=== PATIENT | male | born 1980 | race Caucasian/White ===

== ENCOUNTER 2016-03-24 06:48 | Observation (INO) | payer BC ==
[2016-03-24] MEDS ORDERED: Ondansetron INJ* 2 MG/ML VIAL ONE (07:11)
[2016-03-24] MEDS ORDERED: Ondansetron INJ* 2 MG/ML VIAL IV ONE ×2 (07:13→12:14)
[2016-03-24] MEDS ORDERED: NS 0.9% 1000 ML* 1,000 ML IV ONE ×3 (07:14→08:42)
[2016-03-24 07:19] LABS: Hematocrit 43 % (42-52); Mean Corpuscular Volume 88 fL (80-94); Mean Platelet Volume 8 um3 (7.4-10.4); Red Blood Count 4.91 10^6/ul (4.0-5.4); Red Cell Distribution Width 13 % (10.5-15); White Blood Count 17.2 10^3/ul (3.5-10.8)
[2016-03-24] MEDS ORDERED: HYDROmorphone INJ* 1 MG/ML CARPUJECT SYRINGE IV ONE (07:24)
[2016-03-24 07:41] LABS: Comments Flag Yes
[2016-03-24 07:47] LABS: Hemoglobin 14.5 g/dl (14.0-18.0); Mean Corpuscular Hemoglobin 30 pg (27-31)
[2016-03-24 07:48] LABS: Mean Corpuscular HGB Conc 34 g/dl (31-36)
[2016-03-24 08:16] LABS: Albumin 5.4 g/dL (3.2-5.2); Alkaline Phosphatase 44 U/L (34-104); C Reactive Protein 5.17 mg/L (< 5.00); Calcium 10.1 mg/dL (8.6-10.3); Chloride 95 mmol/L (101-111); EGFR African American 92.1 (>60); EGFR Non-African American 71.6 (>60); Globulin 2.1 g/dL (2-4); Glucose 53 mg/dL (70-100); Lipase 355 U/L (11.0-82.0); Potassium 5.8 mmol/L (3.5-5.0); Sodium 124 mmol/L (133-145); Total Protein 7.5 g/dL (6.4-8.9)
[2016-03-24] MEDS ORDERED: Dextrose 50% Syringe 50 ML* 25 GM/50 ML SYRINGE IV PUSH ONE (08:29)
--- NOTE | 2016-03-24 08:39 | RAD ---
INDICATION: ] Right upper quadrant pain COMPARISON: CT abdomen and pelvis July 30, 2014 TECHNIQUE: Longitudinal and transverse scans of the right upper quadrant were obtained. Doppler interrogation of the hepatic and portal venous system was performed. FINDINGS: Liver: There is hepatomegaly with hepatic steatosis. There are no masses . The liver measures 21.7 cm in cephalocaudal dimension. Vessels: There is normal hepatic and portal venous flow. Bile ducts: There is no evidence of intrahepatic or extrahepatic ductal dilatation. The common duct measures 0.5 cm. Gallbladder: The sonographic appearance of the gallbladder is normal. There is no evidence of cholelithiasis, thickening of the gallbladder wall, or pericholecystic fluid. Pancreas: The visualized pancreas appears normal Right kidney: The right kidney is normal in size and echogenicity. There are no masses or calculi. There is no evidence of hydronephrosis. The right kidney measures 12.1 x 5.9 x 5.1 cm. IVC and aorta: The aorta and superior vena cava appear normal. Fluid: There is no ascites. Other: None. IMPRESSION: HEPATOMEGALY WITH HEPATIC STEATOSIS. NORMAL GALLBLADDER.
[2016-03-24 09:08] LABS: Cholesterol 535 mg/dL; HDL Cholesterol 24.5 mg/dL
[2016-03-24 09:18] LABS: Urine Bilirubin Negative (Negative); Urine Glucose 2+(150 mg/dL) (Negative); Urine Nitrite Negative (Negative)
[2016-03-24 09:26] LABS: Benzodiazepine Urine Screen None Detected (None Detect)
[2016-03-24 09:56] LABS: Triglycerides 4970 mg/dL
[2016-03-24 10:06] LABS: ALT 30 U/L (7-52); AST 37 U/L (13-39)
[2016-03-24 10:18] LABS: Alcohol < 10 mg/dL (<10)
[2016-03-24] MEDS: Morphine INJ* 2 MG/ML 1 ML CARPUJECT IV PRN (10:18)
[2016-03-24] MEDS: Ondansetron INJ* 2 MG/ML VIAL IV PRN ×2 (11:03→16:23)
[2016-03-24 11:04] LABS: Anion Gap 9 mmol/L (2-11); CO2 Carbon Dioxide 20 mmol/L (22-32)
[2016-03-24] MEDS: NS 0.9% 1000 ML* 1,000 ML IV SCH ×2 (12:05→22:30)
[2016-03-24] MEDS: HYDROmorphone INJ* 1 MG/ML CARPUJECT SYRINGE IV SLOW PU PRN ×3 (12:31→20:35)
[2016-03-24 13:59] LABS: Creatine Kinase 288 U/L (10-223)
[2016-03-24 16:25] LABS: BUN/Creatinine Ratio 12.8 (8-20); Calcium 8.8 mg/dL (8.6-10.3); EGFR African American 145.7 (>60); EGFR Non-African American 113.3 (>60); Potassium 3.8 mmol/L (3.5-5.0)
[2016-03-24] MEDS: PROCHLORPERAZINE INJ 5 MG/ML 2 ML VIAL IV PRN (20:10)
[2016-03-25 08:00] LABS: Hematocrit 40 % (42-52); Hemoglobin 13.7 g/dl (14.0-18.0); Mean Corpuscular HGB Conc 34 g/dl (31-36); Mean Corpuscular Hemoglobin 31 pg (27-31); Mean Corpuscular Volume 89 fL (80-94); Mean Platelet Volume 8 um3 (7.4-10.4); Red Cell Distribution Width 13 % (10.5-15); White Blood Count 14.6 10^3/ul (3.5-10.8)
[2016-03-25] MEDS ORDERED: Atorvastatin* 40 MG TAB PO ONE (08:27)
[2016-03-25] MEDS ORDERED: Potassium Chlor TAB* 20 MEQ TAB.ER PO ONE (08:30)
[2016-03-25] MEDS: PROCHLORPERAZINE INJ 5 MG/ML 2 ML VIAL IV PRN (08:48)
[2016-03-25] MEDS: HYDROmorphone INJ* 1 MG/ML CARPUJECT SYRINGE IV SLOW PU PRN (08:49)
[2016-03-25 08:50] LABS: BUN/Creatinine Ratio 7.7 (8-20); Calcium 9.2 mg/dL (8.6-10.3); EGFR African American 121.9 (>60); EGFR Non-African American 94.8 (>60); Globulin 3.1 g/dL (2-4); Total Bilirubin 0.5 mg/dL (0.2-1.0); Total Protein 7.1 g/dL (6.4-8.9)
[2016-03-25] MEDS: Gemfibrozil TAB* 600 MG PO SCH ×2 (08:56→21:34)
[2016-03-25 09:17] LABS: Direct Bilirubin 0.1 mg/dL (0.03-0.18); Indirect Bilirubin 0.4 mg/dL (0.3-1.0)
--- NOTE | 2016-03-25 09:25 | ED ---
Alessandro Carmona Matthew, scribed for Irwin Osorio MD on 03/24/16 at 0716 . Abdominal Pain/Male - HPI Summary HPI Summary: A 35 y/o male presents to the ED with sudden, diffuse lower abdominal pain since 01:00 today. The pain is rated 10/10 in severity and described as sharp. The patient states that he has these symptoms every four months. Associated symptoms include chills, vomiting, and nausea. The patient denies fever, hematemesis, diarrhea, blood w/ stool, urinary symptoms, rhinorrhea, sore throat , chest pain, SOB, and cough. He also has pains with deep breathing. The patient has seen a GI specialist in the past and states the symptoms were due to his high cholesterol. The patient has been taking fish pills and cholesterol medication. He has a FHx of HLD. The symptoms began with pain. The patient states that he smokes marijuana ~3 times per week. - History of Current Complaint Chief Complaint: EDAbdPain Stated Complaint: ABD PAIN Time Seen by Provider: 03/24/16 07:10 Hx Obtained From: Patient Onset/Duration: Sudden Onset, Lasting Hours, Still Present Timing: Constant Severity Initially: Moderate Severity Currently: Moderate Pain Intensity: 10 Pain Scale Used: 0-10 Numeric Location: Diffuse - lower abdominal Radiates: No Character: Sharp Aggravating Factor(s): Nothing Alleviating Factor(s): Nothing Associated Signs And Symptoms: Positive: Nausea, Vomiting, Other - Chills. Negative: Fever, Cough, Chest Pain, Blood in Stool, Urinary Symptoms, Diarrhea - Allergies/Home Medications Allergies/Adverse Reactions: Allergies Allergy/AdvReac Type Severity Reaction Status Date / Time No Known Allergies Allergy Verified 03/24/16 07:05 Home Medications: Home Medications Fish Oil 1,000 mg PO DAILY 03/24/16 [History Confirmed 03/24/16] Pepcid 10 mg PO QAM 03/24/16 [History Confirmed 03/24/16] PMH/Surg Hx/FS Hx/Imm Hx Endocrine/Hematology History: Denies: Hx Diabetes Cardiovascular History: Denies: Hx Congestive Heart Failure, Hx Hypertension History: Denies: Hx Renal Disease Infectious Disease History: No Infectious Disease History: Denies: Traveled Outside the [place] in Last 30 Days - Family History Family History: FHx of HLD - Social History Alcohol Use: Occasionally Substance Use Type: Reports: Marijuana Substance Use Comment - Amount & Last Used: 2 WEEKS AGO Smoking Status (MU): Never Smoked Tobacco Review of Systems Positive: Chills. Negative: Fever Eyes: Negative ENT: Negative Negative: Sore Throat Cardiovascular: Negative Negative: Chest Pain Respiratory: Negative Negative: Shortness Of Breath, Cough Positive: Abdominal Pain - diffuse lower abdominal , Vomiting, Nausea Genitourinary: Negative Musculoskeletal: Negative Skin: Negative Neurological: Negative Psychological: Normal All Other Systems Reviewed And Are Negative: Yes Physical Exam - Summary Physical Exam Summary: GENERAL: Awake, alert, oriented, no acute distress, very pleasant HEENT: Head is normocephalic, atraumatic, anicteric sclera, pink conjunctiva, mucous membranes moist, no erythema, no discharge, no lesions, neck is supple, trachea is midline, no JVD CARDIAC: Regular rate and rhythm, S1, S2, no rub, no murmur, no gallop, 2+ radial and pedal pulses bilaterally RESPIRATORY: Clear to auscultation bilaterally with no rales, rhonchi, or wheezes, non-tender ABDOMEN: Bowel sounds positive, no bruit, soft, epigastric tenderness, negative Psoas sign, 2+ femoral pulses, no CVA tenderness EXTREMITIES: No edema, warm, dry, moving all extremities in a grossly normal manner NEUROLOGICAL: Mood is appropriate, moving all extremities in a grossly normal manner Triage Information Reviewed: Yes Vital Signs On Initial Exam: Initial Vitals Temp Pulse Resp BP Pulse Ox 97.4 F 71 18 139/90 100 03/24/16 06:57 03/24/16 06:57 03/24/16 06:57 03/24/16 06:57 03/24/16 06:57 Vital Signs Reviewed: Yes Diagnostics - Vital Signs Vital Signs Temp Pulse Resp BP Pulse Ox 03/24/16 06:57 97.4 F 71 18 139/90 100 - Laboratory Lab Results: Lab Results 03/24/16 03/24/16 03/24/16 Range/Units 07:03 07:03 07:03 WBC 17.2 H (3.5-10.8) 10^3/ul RBC 4.91 (4.0-5.4) 10^6/ul Hgb 14.5 (14.0-18.0) g/dl Hct 43 (42-52) % MCV 88 (80-94) fL MCH 30 (27-31) pg MCHC 34 (31-36) g/dl RDW 13 (10.5-15) % Plt Count 313 (150-450) 10^3/ul MPV 8 (7.4-10.4) um3 Neut % (Auto) 79.8 (38-83) % Lymph % (Auto) 14.1 L (25-47) % [place] % (Auto) 4.8 (1-9) % Eos % (Auto) 0.7 (0-6) % Baso % (Auto) 0.6 (0-2) % Absolute Neuts (auto) 13.7 H (1.5-7.7) 10^3/ul Absolute Lymphs (auto) 2.4 (1.0-4.8) 10^3/ul Absolute Monos (auto) 0.8 (0-0.8) 10^3/ul Absolute Eos (auto) 0.1 (0-0.6) 10^3/ul Absolute Basos (auto) 0.1 (0-0.2) 10^3/ul Absolute Nucleated RBC 0.02 10^3/ul Nucleated RBC % 0.1 Sodium 124 L (133-145) mmol/L Potassium 5.8 H (3.5-5.0) mmol/L Chloride 95 L (101-111) mmol/L Carbon Dioxide 20 L (22-32) mmol/L Anion Gap 9 (2-11) mmol/L BUN TNP Creatinine 1.16 (0.67-1.17) mg/dL Est GFR ( Amer) 92.1 (>60) Est GFR (Non-Af Amer) 71.6 (>60) BUN/Creatinine Ratio TNP Glucose 53 L (70-100) mg/dL Lactic Acid 1.1 (0.5-2.0) mmol/L Calcium 10.1 (8.6-10.3) mg/dL Total Bilirubin 0.80 (0.2-1.0) mg/dL AST 37 (13-39) U/L ALT 30 (7-52) U/L Alkaline Phosphatase 44 (34-104) U/L Total Creatine Kinase 288 H (10-223) U/L Troponin I 0.00 (<0.04) ng/mL C-Reactive Protein 5.17 H (< 5.00) mg/L Total Protein 7.5 (6.4-8.9) g/dL Albumin 5.4 H (3.2-5.2) g/dL Globulin 2.1 (2-4) g/dL Albumin/Globulin Ratio 2.6 (1-3) Triglycerides 4970 mg/dL Cholesterol 535 mg/dL LDL Cholesterol mg/dL HDL Cholesterol 24.5 mg/dL Lipase 355 H (11.0-82.0) U/L Acetaminophen TNP Serum Alcohol < 10 (<10) mg/dL Result Diagrams: 03/25/16 07:36 03/25/16 07:36 Lab Statement: Any lab studies that have been ordered have been reviewed, and results considered in the medical decision making process. - Ultrasound No standard instances Ultrasound Interpretation: Positive (See Comments) - IMPRESSION: HEPATOMEGALY WITH HEPATIC STEATOSIS. NORMAL GALLBLADDER. Ultrasound Interpretation Completed By: Radiologist Re-Evaluation - Re-Evaluation First Eval Re-Evaluation Time: 07:53 Change: Unchanged Comment: The patient was counseled on the differential Dx. Abdominal Pain Fem Course/Dx - Diagnoses Provider Diagnoses: Acute pancreatitis - Provider Notifications Discussed Care Of Patient With: Dr. Collier (Hospitalist) at 08:34 -- Notified of patient's history and will admit the patient. Discharge - Discharge Plan Condition: Stable Disposition: ADMITTED TO [facility] documentation as recorded by the Alessandro best Matthew accurately reflects the service I personally performed and the decisions made by me, Irwin Osorio MD.
[2016-03-25 10:08] LABS: HDL Cholesterol 32.6 mg/dL
[2016-03-25] MEDS: NS 0.9% 1000 ML* 1,000 ML IV SCH ×2 (11:31→21:38)
[2016-03-25 11:38] LABS: TSH (Thyroid Stimulating Horm) 1.14 mcIU/mL (0.34-5.60)
--- NOTE | 2016-03-25 14:53 | PN ---
Subjective Date of Service: 03/25/16 Interval History: . met with patient at bedside. exam done abd pain decreased relative to yesterday interested in clear liquid diet. also very interested to learn about his TG levels and how that can cause pancreatitis. we discussed a referral to a lipidologist after dc - further discussed type V hypercholesterolemia. denies new s/sx patient appreciative of care. . Family History: Unchanged from Admission Social History: Unchanged from Admission Past Medical History: Unchanged from Admission Objective Active Medications: . Atorvastatin Calcium (Lipitor*) 20 mg PO 1700 ZOHREH Gemfibrozil (Lopid Tab*) 600 mg PO BID [facility] Last Admin: 03/25/16 08:56 Dose: 600 mg Hydromorphone HCl (Dilaudid Iv*) 1 mg IV SLOW PU Q4H PRN PRN Reason: PAIN Last Admin: 03/25/16 08:49 Dose: 1 mg Sodium Chloride (Ns 0.9% 1000 Ml*) 1,000 mls @ 100 mls/hr IV PER RATE [facility] Last Admin: 03/25/16 11:31 Dose: 100 mls/hr Morphine Sulfate (Morphine Inj (Syringe)*) 2 mg IV Q4H PRN PRN Reason: PAIN Last Admin: 03/24/16 10:18 Dose: 2 mg Ondansetron HCl (Zofran Inj*) 4 mg IV Q4H PRN PRN Reason: NAUSEA/VOMITING Last Admin: 03/24/16 16:23 Dose: 4 mg Prochlorperazine Edisylate (Compazine Inj*) 10 mg IV Q6H PRN PRN Reason: NAUSEA Last Admin: 03/25/16 08:48 Dose: 10 mg Vital Signs 03/24/16 03/24/16 03/24/16 15:37 16:23 17:16 Temperature 98.0 F Pulse Rate 69 Respiratory 20 16 14 Rate Blood Pressure 129/71 (mmHg) O2 Sat by Pulse 97 Oximetry 03/24/16 03/24/16 03/24/16 19:24 20:00 20:35 Temperature 98.3 F Pulse Rate 90 Respiratory 16 18 18 Rate Blood Pressure 125/66 (mmHg) O2 Sat by Pulse 97 Oximetry Oxygen Devices in Use Now: None Appearance: NAD Eyes: No Scleral Icterus, PERRLA Ears/Nose/Mouth/Throat: Clear Oropharnyx Neck: NL Appearance and Movements; NL JVP Respiratory: Symmetrical Chest Expansion and Respiratory Effort, Clear to Auscultation Cardiovascular: NL Sounds; No Murmurs; No JVD Lymphatic: No Cervical Adenopathy Extremities: No Edema Skin: No Rash or Ulcers Neurological: Alert and Oriented x 3 Lines/Tubes/Other Access: Clean, Dry and Intact Peripheral IV Nutrition: Taking PO's - clears today Result Diagrams: 03/25/16 07:36 03/25/16 07:36 Assess/Plan/Problems-Billing . Assessment: 35 yo man with acute pancreatitis secondary to hypertriglyceridemia TG down to ~400 today - much improved. corresponding improvement in hyponatremia and hyperkalemia renal function at baseline Statin and gemfibrozil started. - Patient Problems (1) Hypertriglyceridemia Current Visit: Yes Status: Acute Priority: High Code(s): E78.1 - PURE HYPERGLYCERIDEMIA Comment: - TG 4970 (03/24) to <500 (03/25) (2) Acute pancreatitis Current Visit: Yes Status: Acute Priority: High Code(s): K85.90 - ACUTE PANCREATITIS WITHOUT NECROSIS OR INFECTION, UNSP Comment: - dilaudid IV prn - zofran / compazine prn - aggressive IVF
[2016-03-25] MEDS ORDERED: Atorvastatin* 20 MG TAB PO SCH (17:00)
[2016-03-25] MEDS: Morphine INJ* 2 MG/ML 1 ML CARPUJECT IV PRN (17:25)
[2016-03-25] MEDS: Ondansetron INJ* 2 MG/ML VIAL IV PRN (17:26)
--- NOTE | 2016-03-25 20:52 | HP ---
HISTORY AND PHYSICAL: DATE OF ADMISSION: 03/24/16 TIME OF MY EVALUATION: 5 p.m. PRIMARY CARE PROVIDER: Dr. Amarjit Briggs [place], [place]. CHIEF COMPLAINT: Abdominal pain/nausea/vomiting. HISTORY OF PRESENT ILLNESS: Mr. Reyez is a pleasant 35-year-old man with limited past medical history who complains of diffuse abdominal pain since the day prior to admission - 03/23/16. The patient's pain is also epigastric. He rates it 10/10 in intensity. It is sharp. He has these symptoms every 4 to 5 months for the past year associated with chills, vomiting, and nausea. There is no fever or suspicious food intake. No bloody stools. No urinary symptoms. No upper respiratory or pulmonary symptoms. No sore throat or cough. The patient describes theabdominal pain is worsened with deep breathing. He has seen a slp and had an EGD and endoscopic ultrasound of his pancreas for suspicion of pancreatitis, but these studies were normal. There were done in January 2016 at [facility] in [place], [place]. The patient's EGD did not reveal any peptic ulcer disease or esophageal disease. The patient is guaiac negative for stool in the emergency room. His lipase is elevated above 300 with several lab derangements including hyponatremia, hyperkalemia, hypochloridemia, and a metabolic acidosis with hypoglycemia. He notably has an extremely elevated triglyceride level of 4970 with a total cholesterol of 535 and an LDL component unable to be measured. His hyponatremia was deemed pseudo-hyponatremia and his pancreatitis is thought secondary to hypertriglyceridemia. The patient has never been told he has hypertriglyceridemia although he is on fish oil. He is clinically obese with a BMI of 32. He has never been on a statin, nor tried one. He denies any history of diabetes. He has never been told he is diabetic. The patient is being referred to the hospitalist service for admission and pain control and treatment of his acute pancreatitis, but also control of his cholesterol / triglyceride levels. PAST MEDICAL HISTORY: Recurrent pancreatitis over the past year, deemed idiopathic until now with EGD and EUS/pancreas ultrasound in January 2016 that was negative. OUTPATIENT MEDICATIONS: 1. Fish oil 1000 mg by mouth once daily. 2. Pepcid 10 mg by mouth every morning as needed (intermittent reflux). ALLERGIES: No known drug allergies. FAMILY HISTORY: Reviewed and noncontributory. There is no history of cholesterol abnormalities or recurrent pancreatitis. 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 The patient is a nonsmoker and has never smoked. He drinks alcohol approximately twice per year and when he does drink, he drinks between 5 and 7 beers and he has not done this recently. He does not drink regularly outside of those instances. The patient is engaged. His fiancee is present at the bedside. His mother is his surrogate decision maker - Giulia Reyez, who can be reached at [phone]. REVIEW OF SYSTEMS: A review of 14 systems was accomplished at the bedside. This was largely negative except for the pertinent positives mentioned above in the HPI and past medical history. However, I note the patient has no history of gallstones although this is worked up with right upper quadrant ultrasound during times of his right upper quadrant pain over the past few years. He did describe reflux disease. No other pertinent positives were reported. PHYSICAL EXAMINATION GENERAL APPEARANCE: A young-appearing man, appears stated age, in no apparent distress, sitting following opiate administration, but with abdominal palpation is very uncomfortable and guards his abdomen. VITAL SIGNS: On admission, temperature 98.2 degrees Fahrenheit, pulse 70s, respirations 18 and regular, oxygen saturation 100% on room air, blood pressure 139/90 on admission. HEENT: Oropharynx is clear. Mucous membranes are moist. NECK: Supple. No elevated JVD. CHEST: Clear breath sounds anteriorly and posteriorly. No increased work of breathing or accessory muscle use. HEART: Regular rate and rhythm. No murmurs, rubs, or gallops appreciated. ABDOMEN: Exquisitely tender in the upper abdomen. It is certainly epigastric tenderness consistent with pancreatitis. There is no lower abdominal pain although that is how he initially described it. SKIN: Dry and intact without rashes, lesions, or breakdown. EXTREMITIES: Without clubbing, cyanosis, or edema. Good muscle bulk throughout. NEUROLOGIC: He has got no focal weakness. He can move all extremities. He cooperates voluntarily with my exam. Mental status is intact. PSYCH: No acute anxiety or depression. He is upset only by his pain. LYMPH: No adenopathy. ADMISSION DATA: Sodium low at 124, potassium elevated at 5.8, chloride low at 95, bicarb depressed at 20, anion gap preserved at 9, creatinine 1.16, no baseline is available. Glucose low at 53. BNP is not calculated secondary to instrumentation difficulties. Hemoglobin A1c which was added on was 5.5 (not diabetic). His total CK was elevated at 288, CRP elevated at 5.17, total protein 7.5, albumin modestly low at 5.4. His cholesterol panel was grossly abnormal with triglycerides massively elevated at 4970, total cholesterol 535, LDL fraction not able to be calculated. Amylase was normal at 78, but lipase was greatly elevated at 355. His TSH was 1.14. A gallbladder ultrasound done in the emergency room showed no evidence of gallstones or other liver pathology. The patient is being referred to the hospitalist service for admission. IMPRESSION: Mr. Reyez is a 35-year-old gentleman with hypertriglyceridemia- associated acute pancreatitis with substantial elevation in his lipase. The patient has characteristic clinical pain and I feel confident given his history of little to no alcohol annually and the absence of gallstones on several occasions during the last year and the fact that he has never been told about his hypertriglyceridemia that his acute pancreatitis is indeed secondary to it. The patient will be aggressively hydrated. His hyponatremia will not be treated directly, but insofar the triglyceride levels are brought down. The patient will be started on a statin and gemfibrozil. Gemfibrozil will be dosed at 600 mg by mouth twice daily and Lipitor will be started at 40. I am aware of the potential interaction with respect to statins and gemfibrozil, but I think in this case the patient will be aggressively hydrated and Lipitor is not the most likely statin to interact with gemfibrozil. I expect the patient will do well during the hospitalization and slowly regain the ability to eat. His diet will be advanced slowly, but he will be kept n.p.o. initially with liquid diet to be started by tomorrow. The patient should be referred to a lipidologist at some point to ensure he is accurately diagnosed and any underlying disorders (i.e. type 5 hypercholesterolemia / hypertriglyceridemia) including possibly hyperchylomicronemia, is identified and managed. Further decisions will be based on his clinical progress. The patient is a full code. DVT prophylaxis will be accomplished by early ambulation and sequential compression devices. He will also receive subcu heparin 5000 units 3 times daily. TIME SPENT: Total time taken to admit Mr. Reyez was 75 minutes, greater than half the time spent going over the history and physical examination and explaining the concept of hypercholesterolemia and my treatment plans face-to- face with the patient and his fiancee. CC: Nasim GavinW[place], [place] * [id number]/[facility] #: [id number] MTDD
[2016-03-26] MEDS: HYDROmorphone INJ* 1 MG/ML CARPUJECT SYRINGE IV SLOW PU PRN (00:37)
[2016-03-26] MEDS: Ondansetron INJ* 2 MG/ML VIAL IV PRN (00:39)
--- NOTE | 2016-03-26 01:25 | DS ---
DISCHARGE SUMMARY: DATE OF ADMISSION: 03/23/16 DATE OF DISCHARGE: 03/26/16 STATUS: Inpatient. PRIMARY CARE PROVIDER: Jayla Gavin [place]. PRINCIPAL DISCHARGE DIAGNOSIS: Acute pancreatitis secondary to hypertriglyceridemia/hypercholesterolemia. SECONDARY DIAGNOSES: 1. Obesity. 2. Gastroesophageal reflux disease. 3. Dyslipidemia. DISCHARGE MEDICATION REGIMEN: New: 1. Gemfibrozil 600 mg by mouth twice daily. 2. Lipitor 20 mg by mouth in the evening. Continue: 1. Pepcid 10 mg by mouth in the morning. 2. Also continue fish oil 1000 mg by mouth daily. HISTORY OF PRESENT ILLNESS AND HOSPITAL COURSE: Please see the H and P by me on 03/23/16. In brief, Mr. Reyez is a 35-year-old gentleman who has been having recurrent pancreatitis over the past year, idiopathic until now when he presented with a triglyceride level of 4900. The patient's lipase was elevated in the 300s. He had pain characteristic of pancreatitis. He had a right upper quadrant ultrasound, which did not show any gallstones and there is no history consistent with alcohol related pancreatitis. The patient was aggressively hydrated and treated with antiemetics and anti-analgesics and he recovered nicely. He was started on a liquid diet and did well. His diet progressed. His triglycerides fell rapidly into the 500 range. He was started on gemfibrozil and also a statin. He should have typical followup labs including LFTs and cholesterol levels in 4 to 6 weeks. The patient was very appreciative of the diagnosis. It seems he has been undergoing an outpatient workup for idiopathic pancreatitis and is happy to have a working diagnosis of hypertriglyceridemia related acute pancreatitis. The patient should be counseled on lifestyle improvement, weight loss. His glucose levels were normal during the hospitalization and his hemoglobin A1C was 5.5. He is being discharged on 03/26/16 in stable condition with a followup with his primary care physician in the upcoming days. CC: Jayla Gavin [place] * [id number]/[facility] #: [id number] MTDD
[2016-03-26 06:07] LABS: BUN/Creatinine Ratio 10.3 (8-20); Calcium 9.5 mg/dL (8.6-10.3); EGFR African American 113.3 (>60); EGFR Non-African American 88.1 (>60); Potassium 4.2 mmol/L (3.5-5.0)
[2016-03-26] MEDS: Gemfibrozil TAB* 600 MG PO SCH (08:54)
--- NOTE | 2016-03-26 09:19 | DCNOTE ---
Subjective Date of Service: 03/26/16 Interval History: No abdominal or other pain. Ate breakfast well. No new c/o, anxious to go home. Patient not aware of any factor (dietary indiscretion, med compliance, alcohol use, new meds, etc.) that could have caused this episode. Family History: Unchanged from Admission Social History: Unchanged from Admission Past Medical History: Unchanged from Admission Objective Active Medications: Atorvastatin Calcium (Lipitor*) 20 mg PO 1700 [facility] Last Admin: 03/25/16 17:17 Dose: 20 mg Gemfibrozil (Lopid Tab*) 600 mg PO BID [facility] Last Admin: 03/26/16 08:54 Dose: 600 mg Hydromorphone HCl (Dilaudid Iv*) 1 mg IV SLOW PU Q4H PRN PRN Reason: PAIN Last Admin: 03/26/16 00:37 Dose: 1 mg Sodium Chloride (Ns 0.9% 1000 Ml*) 1,000 mls @ 100 mls/hr IV PER RATE [facility] Last Admin: 03/25/16 21:38 Dose: 100 mls/hr Morphine Sulfate (Morphine Inj (Syringe)*) 2 mg IV Q4H PRN PRN Reason: PAIN Last Admin: 03/25/16 17:25 Dose: 2 mg Ondansetron HCl (Zofran Inj*) 4 mg IV Q4H PRN PRN Reason: NAUSEA/VOMITING Last Admin: 03/26/16 00:39 Dose: 4 mg Prochlorperazine Edisylate (Compazine Inj*) 10 mg IV Q6H PRN PRN Reason: NAUSEA Last Admin: 03/25/16 08:48 Dose: 10 mg Vital Signs 03/25/16 03/25/16 03/25/16 09:49 12:33 16:07 Temperature 98.1 F 98.3 F Pulse Rate 73 77 Respiratory 12 16 Rate Blood Pressure 117/74 119/68 (mmHg) O2 Sat by Pulse 95 95 Oximetry 03/25/16 03/25/16 03/25/16 17:25 18:25 20:00 Temperature Pulse Rate Respiratory 14 18 18 Rate Blood Pressure (mmHg) O2 Sat by Pulse Oximetry 03/25/16 03/26/16 03/26/16 23:54 00:37 01:37 Temperature 98 F Pulse Rate 76 Respiratory 16 18 18 Rate Blood Pressure 130/71 (mmHg) O2 Sat by Pulse 95 Oximetry Oxygen Devices in Use Now: None Appearance: Alert, sitting up in bed. In good spirits. Looks comfortable. Eyes: No Scleral Icterus Ears/Nose/Mouth/Throat: Clear Oropharnyx, Mucous Membranes Moist Abdominal: NL Sounds; No Tenderness; No Distention, No Hepatosplenomegaly, - Extremities: No Edema, No Clubbing, Cyanosis, - Skin: No Rash or Ulcers, No Nodules or Sclerosis, - Neurological: Alert and Oriented x 3, NL Sensation Result Diagrams: 03/25/16 07:36 03/26/16 05:30 Additional Lab and Data: Lab Results 03/24/16 03/24/16 03/24/16 Range/Units 07:03 07:03 07:03 WBC 17.2 H (3.5-10.8) 10^3/ul RBC 4.91 (4.0-5.4) 10^6/ul Hgb 14.5 (14.0-18.0) g/dl Hct 43 (42-52) % MCV 88 (80-94) fL MCH 30 (27-31) pg MCHC 34 (31-36) g/dl RDW 13 (10.5-15) % Plt Count 313 (150-450) 10^3/ul MPV 8 (7.4-10.4) um3 Neut % (Auto) 79.8 (38-83) % Lymph % (Auto) 14.1 L (25-47) % [place] % (Auto) 4.8 (1-9) % Eos % (Auto) 0.7 (0-6) % Baso % (Auto) 0.6 (0-2) % Absolute Neuts (auto) 13.7 H (1.5-7.7) 10^3/ul Absolute Lymphs (auto) 2.4 (1.0-4.8) 10^3/ul Absolute Monos (auto) 0.8 (0-0.8) 10^3/ul Absolute Eos (auto) 0.1 (0-0.6) 10^3/ul Absolute Basos (auto) 0.1 (0-0.2) 10^3/ul Absolute Nucleated RBC 0.02 10^3/ul Nucleated RBC % 0.1 Sodium 124 L (133-145) mmol/L Potassium 5.8 H (3.5-5.0) mmol/L Chloride 95 L (101-111) mmol/L Carbon Dioxide 20 L (22-32) mmol/L Anion Gap 9 (2-11) mmol/L BUN TNP Creatinine 1.16 (0.67-1.17) mg/dL Est GFR ( Amer) 92.1 (>60) Est GFR (Non-Af Amer) 71.6 (>60) BUN/Creatinine Ratio TNP Glucose 53 L (70-100) mg/dL Lactic Acid 1.1 (0.5-2.0) mmol/L Calcium 10.1 (8.6-10.3) mg/dL Total Bilirubin 0.80 (0.2-1.0) mg/dL AST 37 (13-39) U/L ALT 30 (7-52) U/L Alkaline Phosphatase 44 (34-104) U/L Total Creatine Kinase 288 H (10-223) U/L Troponin I 0.00 (<0.04) ng/mL C-Reactive Protein 5.17 H (< 5.00) mg/L Total Protein 7.5 (6.4-8.9) g/dL Albumin 5.4 H (3.2-5.2) g/dL Globulin 2.1 (2-4) g/dL Albumin/Globulin Ratio 2.6 (1-3) Triglycerides 4970 mg/dL Cholesterol 535 mg/dL LDL Cholesterol mg/dL HDL Cholesterol 24.5 mg/dL Lipase 355 H (11.0-82.0) U/L Acetaminophen TNP Serum Alcohol < 10 (<10) mg/dL Assess/Plan/Problems-Billing . Assessment: 35 yo man with acute pancreatitis secondary to hypertriglyceridemia TG down to ~400 today - much improved. corresponding improvement in hyponatremia and hyperkalemia renal function at baseline Statin and gemfibrozil started. - Patient Problems (1) Acute pancreatitis Current Visit: Yes Status: Acute Priority: High Code(s): K85.90 - ACUTE PANCREATITIS WITHOUT NECROSIS OR INFECTION, UNSP SNOMED Code(s): 446715839 Comment: Resolved. Lipase 117 03/26/16. No pain. discharge now. No anlagesic needed. (2) Hypertriglyceridemia Current Visit: Yes Status: Acute Priority: High Code(s): E78.1 - PURE HYPERGLYCERIDEMIA SNOMED Code(s): 779737936 Comment: - TG 4970 (03/24) to <500 (03/25) Refer to elysia Adams with his PCP. Status and Disposition: Discharge now. Discussed briefly with Dr. Mei.
--- NOTE | 2016-03-26 09:21 | PN ---
Progress Note - Progress Note Note: Time spent on discharge 35 minutes.
[2016-03-26 10:26] VITALS: BP 116/66
== END 2016-03-26 10:15 | disposition home or self-care (01) ==
LOC: ED 06:48 → MED 08:36
PROVIDERS: ADMIT Internal Medicine; ATTEND Internal Medicine
DX: K85.80 Other acute pancreatitis without necrosis or infection (principal); E78.1 Pure hyperglyceridemia; E78.00 Pure hypercholesterolemia, unspecified; E66.9 Obesity, unspecified; K21.9 Gastro-esophageal reflux disease without esophagitis; R16.0 Hepatomegaly, not elsewhere classified; E78.5 Hyperlipidemia, unspecified; Z79.899 Other long term (current) drug therapy
CPT/HCPCS: 36415; 76705; 80048; 80053; 80061; 80307; 80320; 81003; 82150; 82248; 82465; 82550; 83036; 83605; 83690; 84443; 84484; 85025; 86140; 96374; 96375; 96376; 99283; A9270-GY; G0378; G0480; J0780; J1170; J2270; J2405